=== PATIENT | female | born 1970 | race Hispanic/Latino ===

== ENCOUNTER 2023-05-17 20:06 | Emergency (ER) | payer SELFPAY ==
--- OUTSIDE RECORDS SUMMARY | 2023-05-17 20:10 | XMS REPORT | Continuity of Care Document ---
:1970 Author Organization [facility] t Address [address] [place] [address] Care Team Providers Name Role Phone Luis Alberto Baig Primary Care Physician Duarte Benitez MD Attending Clinician DUARTE BENITEZ Attending Clinician Unavailable Doctor Unassigned, [place] [facility] Attending Clinician Unavailable Xavi Meek Attending Clinician Payers Payer Name Policy Type Policy Number Effective Date Expiration Date S ource Problems Condition Condition Condition Status Onset Resolution Last Treating Co mments Source Name Details Category Date Date Treatment Clinician Date Mammogram Mammogram Disease Active 2016-07 Uni vers abnormal abnormal 07-17 ity of 00:00: [address] Irregular Irregular Disease Active Uni vers menstrual menstrual 04-03 ity of cycle cycle 00:00: [address] Well woman Well woman Disease Active U nivers exam exam 04-03 ity of 00:00: [address] EYE PAIN EYE PAIN Diagnosis Active 2017-02-06 Memoria Active 07-24 15:20:00 l 07/24/2016 00:00: John SHAFER 00 [facility] Screening Screening Disease Active 2014-07 Uni vers breast breast 07-18 ity of examinatio examinatio 00:00: Alex armenta n n 00 [facility] Dysfunctio Dysfunctio Disease Active 2015-0 U nivers nal nal 6-19 ity of uterine uterine 00:00: [place] bleeding bleeding 00 Medica l Branch History of Past Illness Condition Condition Condition Status Onset Resolution Last Treating Co mments Source Name Details Category Date Date Treatment Clinician Date Discharge Discharge Problem 2016-07-27 2016-07-27 Jevon Diagnosis: Diagnosis: 1-15 01:42:12 01:42:12 l Chalazion Chalazion 06:00: Herm walter of right of right 00 upper upper eyelid eyelid 07/24/201607/27/ 7 [facility] Allergies, Adverse Reactions, Alerts Allergy Allergy Status Severity Reaction(s) Onset Inactive Treating Comm ents Source Name Type Date Date Clinician metroNID Propensi Active AZOLE - ty to 3-23 Oral adverse 00:00: reaction 00 to drug Metronid Propensi Active azole ty to 3-13 adverse 00:00: reaction 00 to drug NO KNOWN Drug Active Univers ALLERGIE Class ity of S [facility] Social History Social Habit Start Date Stop Date Quantity Comments Source Exposure to 2022-10-17 2022-10-27 Not sure University SARS-CoV-2 00:00:00 08:34:00 [facility] (event) Branch Tobacco use and 2022-10-27 2022-10-27 Smokeless tobacco Un iversity of exposure 00:00:00 00:00:00 non-user [facility] Alcohol intake 2022-10-27 2022-10-27 Current University 00:00:00 00:00:00 non-drinker of [facility] alcohol (finding) Branch Sex Ass[birth year] At [birth year] Universit y of 00:00:00 00:00:00 [facility] Smoking Status Start Date Stop Date Source Social History [facility] Medications Ordered Filled Start Stop Current Ordering Indication Dosage Frequency Signature Comments Components Source Medication Medication Date Date Medication? Clinician (SIG) Name Name diclofenac Yes [id number] 75mg Take 1 Univers 75 mg EC 4-20 9100 tablet by ity of tablet 00:00: mouth 2 [place] (two) Medical times Branch daily with meals. diclofenac Yes [id number] 75mg Take 1 Univers 75 mg EC 4-20 9100 tablet by ity of tablet 00:00: mouth 2 [place] [id number] (two) Medical times Branch daily with meals. amoxicillin 2-0 No 1mg 875 3-30 mg-potassiu 00:00: m 00 clavulanate 125 mg tablet gabapentin 2-0 No 1mg 100 mg 3-30 capsule 00:00: 00 Dose 2022-0 No Unknown 3-30 00:00: 00 Dose 2022-0 No Unknown 3-30 00:00: 00 Dose 2022-0 No Unknown 3-30 00:00: 00 Dose 2-0 No Unknown 3-30 00:00: 00 Dose 2-0 No Unknown 3-30 00:00: 00 Dose 2-0 No Unknown 3-30 00:00: 00 Dose 2-0 No Unknown 3-30 00:00: 00 Dose 2-0 No Unknown 3-30 00:00: 00 Dose 2-0 No Unknown 3-30 00:00: 00 Dose 2-0 No Unknown 3-30 00:00: 00 Dose 2-0 No Unknown 3-30 00:00: 00 Dose 2-0 No Unknown 3-30 00:00: 00 Dose 2-0 No Unknown 3-30 00:00: 00 Dose 2-0 No Unknown 3-30 00:00: 00 Dose 2-0 No Unknown 3-30 00:00: 00 Dose 2-0 No Unknown 3-30 00:00: 00 Dose 2-0 No Unknown 3-30 00:00: 00 Dose 2-0 No Unknown 3-30 00:00: 00 Dose 2022-0 No Unknown 3-30 00:00: 00 Dose 2-0 No Unknown 3-30 00:00: 00 Dose 2-0 No Unknown 3-30 00:00: 00 Dose 2-0 No Unknown 3-30 00:00: 00 Dose 2-0 No Unknown 3-30 00:00: 00 Dose 2-0 No Unknown 3-30 00:00: 00 Dose 2-0 No Unknown 3-30 00:00: 00 Dose 2-0 No Unknown 3-30 00:00: 00 Dose 2022-0 No Unknown 3-30 00:00: 00 Dose 2022-0 No Unknown 3-30 00:00: 00 Dose 2022-0 No Unknown 3-30 00:00: 00 Dose 2022-0 No Unknown 3-30 00:00: 00 Dose 2022-0 No Unknown 3-30 00:00: 00 Dose 2022-0 No Unknown 3-30 00:00: 00 Dose 2022-0 No Unknown 3-30 00:00: 00 Dose 2022-0 No Unknown 3-30 00:00: 00 Dose 2022-0 No Unknown 3-28 00:00: 00 Dose 2022-0 No Unknown 3-28 00:00: 00 Dose 2022-0 No Unknown 3-27 00:00: 00 Dose 2022-0 No Unknown 3-27 00:00: 00 Dose 2022-0 No Unknown 3-24 00:00: 00 Dose 2022-0 No Unknown 3-24 00:00: 00 Dose 2022-0 No Unknown 3-24 00:00: 00 Dose 2022-0 No Unknown 3-24 00:00: 00 Dose 2022-0 No Unknown 3-23 00:00: 00 Dose 2022-0 No Unknown 3-23 00:00: 00 Dose 2022-0 No Unknown 3-23 00:00: 00 Dose 2022-0 No Unknown 3-23 00:00: 00 Dose 2022-0 No Unknown 3-23 00:00: 00 Dose 2022-0 No Unknown 3-23 00:00: 00 Dose 2022-0 No Unknown 3-23 00:00: 00 Dose 2022-0 No Unknown 3-23 00:00: 00 Dose 2022-0 No Unknown 3-23 00:00: 00 Dose 2022-0 No Unknown 3-23 00:00: 00 Dose 2022-0 No Unknown 3-23 00:00: 00 Dose 2022-0 No Unknown 3-23 00:00: 00 Dose 2022-0 No Unknown 3-23 00:00: 00 Dose 2022-0 No Unknown 3-23 00:00: 00 Dose 2022-0 No Unknown 3-23 00:00: 00 Dose 2022-0 No Unknown 3-23 00:00: 00 Dose 2022-0 No Unknown 3-23 00:00: 00 Dose 2022-0 No Unknown 3-23 00:00: 00 Dose 2022-0 No Unknown 3-23 00:00: 00 Dose 2022-0 No Unknown 3-23 00:00: 00 Dose 2022-0 No Unknown 3-23 00:00: 00 Dose 2022-0 No Unknown 3-23 00:00: 00 Dose 2022-0 No Unknown 3-23 00:00: 00 Dose 2022-0 No Unknown 3-23 00:00: 00 Dose 2022-0 No Unknown 3-23 00:00: 00 Dose 2022-0 No Unknown 3-23 00:00: 00 Dose 2022-0 No Unknown 3-23 00:00: 00 Dose 2022-0 No Unknown 3-23 00:00: 00 Dose 2022-0 No Unknown 3-23 00:00: 00 Dose 2022-0 No Unknown 3-23 00:00: 00 Dose 2022-0 No Unknown 3-23 00:00: 00 Dose 2022-0 No Unknown 3-23 00:00: 00 Dose 2022-0 No Unknown 3-23 00:00: 00 Dose 2022-0 No Unknown 3-23 00:00: 00 Dose 2022-0 No Unknown 3-23 00:00: 00 Dose 2022-0 No Unknown 3-23 00:00: 00 Dose 2022-0 No Unknown 3-23 00:00: 00 Dose 2022-0 No Unknown 3-23 00:00: 00 Dose 2022-0 No Unknown 3-23 00:00: 00 Dose 2022-0 No Unknown 3-23 00:00: 00 Dose 2022-0 No Unknown 3-23 00:00: 00 Dose 2022-0 No Unknown 3-23 00:00: 00 Dose 2022-0 No Unknown 3-23 00:00: 00 Dose 2022-0 No Unknown 3-23 00:00: 00 Dose 2022-0 No Unknown 3-23 00:00: 00 Dose 2022-0 No Unknown 3-23 00:00: 00 Dose 2022-0 No Unknown 3-23 00:00: 00 Dose 2022-0 No Unknown 3-23 00:00: 00 Dose 2022-0 No Unknown 3-23 00:00: 00 Dose 2022-0 No Unknown 3-23 00:00: 00 Dose 2022-0 No Unknown 3-23 00:00: 00 Dose 2022-0 No Unknown 3-23 00:00: 00 Dose 2022-0 No Unknown 3-23 00:00: 00 Dose 2022-0 No Unknown 3-23 00:00: 00 Dose 2022-0 No Unknown 3-23 00:00: 00 Dose 2022-0 No Unknown 3-23 00:00: 00 Dose 2022-0 No Unknown 3-23 00:00: 00 Dose 2022-0 No Unknown 3-23 00:00: 00 Dose 2022-0 No Unknown 3-23 00:00: 00 Dose 2022-0 No Unknown 3-23 00:00: 00 Dose 2022-0 No Unknown 3-23 00:00: 00 Dose 2022-0 No Unknown 3-23 00:00: 00 Dose 2022-0 No Unknown 3-23 00:00: 00 Dose 2022-0 No Unknown 3-23 00:00: 00 Dose 2022-0 No Unknown 3-23 00:00: 00 Dose 2022-0 No Unknown 3-23 00:00: 00 Dose 2022-0 No Unknown 3-23 00:00: 00 Dose 2022-0 No Unknown 3-23 00:00: 00 Dose 2022-0 No Unknown 3-23 00:00: 00 Dose 2022-0 No Unknown 3-23 00:00: 00 Dose 2022-0 No Unknown 3-23 00:00: 00 Dose 2022-0 No Unknown 3-23 00:00: 00 Dose 2022-0 No Unknown 3-23 00:00: 00 Dose 2022-0 No Unknown 3-23 00:00: 00 Dose 2022-0 No Unknown 3-23 00:00: 00 Dose 2022-0 No Unknown 3-23 00:00: 00 Dose 2022-0 No Unknown 3-23 00:00: 00 Dose 2022-0 No Unknown 3-23 00:00: 00 Dose 2022-0 No Unknown 3-23 00:00: 00 Dose 2022-0 No Unknown 3-23 00:00: 00 Dose 2022-0 No Unknown 3-23 00:00: 00 Dose 2022-0 No Unknown 3-23 00:00: 00 Dose 2022-0 No Unknown 3-23 00:00: 00 Dose 2022-0 No Unknown 3-23 00:00: 00 Dose 2022-0 No Unknown 3-23 00:00: 00 Dose 2022-0 No Unknown 3-23 00:00: 00 Dose 2022-0 No Unknown 3-23 00:00: 00 Dose 2022-0 No Unknown 3-23 00:00: 00 Dose 2022-0 No Unknown 3-23 00:00: 00 Dose 2022-0 No Unknown 3-23 00:00: 00 Dose 2022-0 No Unknown 3-23 00:00: 00 Dose 2022-0 No Unknown 3-23 00:00: 00 Dose 2022-0 No Unknown 3-23 00:00: 00 Dose 2022-0 No Unknown 3-23 00:00: 00 Dose 2022-0 No Unknown 3-23 00:00: 00 Dose 2022-0 No Unknown 3-23 00:00: 00 Dose 2022-0 No Unknown 3-23 00:00: 00 Dose 2022-0 No Unknown 3-23 00:00: 00 Dose 2022-0 No Unknown 3-23 00:00: 00 Dose 2022-0 No Unknown 3-23 00:00: 00 Dose 2022-0 No Unknown 3-23 00:00: 00 Dose 2022-0 No Unknown 3-23 00:00: 00 Dose 2022-0 No Unknown 3-23 00:00: 00 Dose 2022-0 No Unknown 3-23 00:00: 00 Dose 2022-0 No Unknown 3-23 00:00: 00 Dose 2022-0 No Unknown 3-23 00:00: 00 Dose 2022-0 No Unknown 3-23 00:00: 00 Dose 2022-0 No Unknown 3-23 00:00: 00 Dose 2022-0 No Unknown 3-23 00:00: 00 Dose 2022-0 No Unknown 3-23 00:00: 00 Dose 2022-0 No Unknown 3-23 00:00: 00 Dose 2022-0 No Unknown 3-23 00:00: 00 Dose 2022-0 No Unknown 3-23 00:00: 00 Dose 2022-0 No Unknown 3-23 00:00: 00 Dose 2022-0 No Unknown 3-23 00:00: 00 Dose 2022-0 No Unknown 3-23 00:00: 00 Dose 2022-0 No Unknown 3-23 00:00: 00 Dose 2022-0 No Unknown 3-23 00:00: 00 Dose 2022-0 No Unknown 3-23 00:00: 00 Dose 2022-0 No Unknown 3-23 00:00: 00 Dose 2022-0 No Unknown 3-23 00:00: 00 Dose 2022-0 No Unknown 3-23 00:00: 00 Dose 2022-0 No Unknown 3-23 00:00: 00 Dose 2022-0 No Unknown 3-23 00:00: 00 Dose 2022-0 No Unknown 3-23 00:00: 00 Dose 2022-0 No Unknown 3-23 00:00: 00 Dose 2022-0 No Unknown 3-23 00:00: 00 Dose 2022-0 No Unknown 3-23 00:00: 00 Dose 2022-0 No Unknown 3-23 00:00: 00 Dose 2022-0 No Unknown 3-23 00:00: 00 Dose 2022-0 No Unknown 1-11 00:00: 00 Dose 2020-0 No Unknown 4-14 00:00: 00 Dose 2020-0 No Unknown 4-14 00:00: 00 Dose 2020-0 No Unknown 4-12 00:00: 00 Dose 2020-0 No Unknown 4-12 00:00: 00 prednisone 2020-0 No 1mg 50 mg 1-08 tablet 00:00: 00 Bromfed DM 2020- No 75mg/5 2 mg-30 1-08 mL mg-10 mg/5 00:00: mL oral 00 syrup ciprofloxac 2019-0 No 1mg in 500 mg 6-12 tablet 00:00: 00 dicyclomine 2019-0 No 1mg 20 mg 6-12 tablet 00:00: 00 terbinafine Yes 250mg Take 250 U nivers HCl 250 mg 9-25 mg by ity of tablet 10:50: mouth [place] 02 daily. Medical Branch terbinafine Yes 250mg Take 250 U nivers HCl 250 mg 9-25 mg by ity of tablet 10:50: mouth [place] 02 daily. Medical Branch terbinafine Yes 250mg Take 250 U nivers HCl 250 mg 9-25 mg by ity of tablet 10:50: mouth [place] 02 daily. Medical Branch Tobramycin Yes 1 appl, Cezar jesi 0.003 MG/MG 1-16 RIGHT EYE, l Ophthalmic 01:48: TID, X 7 Her maldonado Ointment 00 day, # 3 gm, 0 Refill(s) Tobramycin Yes 1 appl, Cezar jesi 0.003 MG/MG 1-16 RIGHT EYE, l Ophthalmic 01:48: TID, X 7 Her maldonado Ointment 00 day, # 3 gm, 0 Refill(s) Tobramycin 2016- Yes 1 appl, Cezar jesi 0.003 MG/MG 1-16 RIGHT EYE, l Ophthalmic 01:48: TID, X 7 Her maldonado Ointment 00 day, # 3 gm, 0 Refill(s) Tobramycin 2016- Yes 1 appl, Cezar jesi 0.003 MG/MG 1-16 RIGHT EYE, l Ophthalmic 01:48: TID, X 7 Her maldonado Ointment 00 day, # 3 gm, 0 Refill(s) Tobramycin Yes 1 appl, Cezar jesi 0.003 MG/MG 1-16 RIGHT EYE, l Ophthalmic 01:48: TID, X 7 Her maldonado Ointment 00 day, # 3 gm, 0 Refill(s) Tobramycin 2016- Yes 1 appl, Cezar jesi 0.003 MG/MG -16 RIGHT EYE, l Ophthalmic 01:48: TID, X 7 Her maldonado Ointment 00 day, # 3 gm, 0 Refill(s) Tobramycin Yes 1 appl, Cezar jesi 0.003 MG/MG 1-16 RIGHT EYE, l Ophthalmic 01:48: TID, X 7 Her maldonado Ointment 00 day, # 3 gm, 0 Refill(s) Tobramycin 2016- Yes 1 appl, Cezar jesi 0.003 MG/MG 1-16 RIGHT EYE, l Ophthalmic 01:48: TID, X 7 Her maldonado Ointment 00 day, # 3 gm, 0 Refill(s) Tobramycin Yes 1 appl, Cezar jesi 0.003 MG/MG -16 RIGHT EYE, l Ophthalmic 01:48: TID, X 7 Her maldonado Ointment 00 day, # 3 gm, 0 Refill(s) Vital Signs Vital Name Observation Time Observation Value Comments Source Systolic blood 2022-10-27 13:45:00 107 mm[Hg] Charly russelly [facility] Diastolic blood 2022-10-27 13:45:00 74 mm[Hg[facility] Heart rate 2022-10-27 13:45:00 66 /min [facility] Body height 2022-10-27 13:45:00 165.1 cm [facility] Body weight 2022-10-27 13:45:00 76.703 kg [facility] BMI 2022-10-27 13:45:00 28.14 kg/m2 [facility] BP Systolic 2022-03-30 11:51:00 101 mm[Hg] BP Diastolic 2022-03-30 11:51:00 68 mm[Hg] Weight Measured 2022-03-30 11:51:00 176.00 pounds Height Measured 2022-03-30 11:51:00 64.00 inches Body Temperature 2022-03-30 11:51:00 97.40 degrees Heart Rate 2022-03-30 11:51:00 66.00 /min Respiratory Rate 2022-03-30 11:51:00 BP Systolic 2021-10-06 16:39:00 96 mm[Hg] BP Diastolic 2021-10-06 16:39:00 61 mm[Hg] Weight Measured 2021-10-06 16:39:00 165.40 pounds Height Measured 2021-10-06 16:39:00 64.00 inches Body Temperature 2021-10-06 16:39:00 97.70 degrees Heart Rate 2021-10-06 16:39:00 69.00 /min Respiratory Rate 2021-10-06 16:39:00 21.00 /min BP Systolic 2021-09-29 10:03:00 93 mm[Hg] BP Diastolic 2021-09-29 10:03:00 57 mm[Hg] Weight Measured 2021-09-29 10:03:00 163.40 pounds Height Measured 2021-09-29 10:03:00 64.00 inches Body Temperature 2021-09-29 10:03:00 98.30 degrees Heart Rate 2021-09-29 10:03:00 59.00 /min Respiratory Rate 2021-09-29 10:03:00 BP Systolic 2021-07-20 15:00:00 110 mm[Hg] BP Diastolic 2021-07-20 15:00:00 71 mm[Hg] Weight Measured 2021-07-20 15:00:00 161.40 pounds Height Measured 2021-07-20 15:00:00 64.00 inches Body Temperature 2021-07-20 15:00:00 98.00 degrees Heart Rate 2021-07-20 15:00:00 68.00 /min Respiratory Rate 2021-07-20 15:00:00 16.00 /min BP Systolic 2020-09-09 08:51:00 107 mm[Hg] BP Diastolic 2020-09-09 08:51:00 68 mm[Hg] Weight Measured 2020-09-09 08:51:00 176.60 pounds Height Measured 2020-09-09 08:51:00 64.00 inches Body Temperature 2020-09-09 08:51:00 98.50 degrees Heart Rate 2020-09-09 08:51:00 67.00 /min Respiratory Rate 2020-09-09 08:51:00 16.00 /min BP Systolic 2020-09-04 11:02:00 107 mm[Hg] BP Diastolic 2020-09-04 11:02:00 67 mm[Hg] Weight Measured 2020-09-04 11:02:00 175.80 pounds Height Measured 2020-09-04 11:02:00 64.00 inches Body Temperature 2020-09-04 11:02:00 Heart Rate 2020-09-04 11:02:00 76.00 /min Respiratory Rate 2020-09-04 11:02:00 17.00 /min BP Systolic 2019-08-13 15:51:00 113 mm[Hg] BP Diastolic 2019-08-13 15:51:00 72 mm[Hg] Weight Measured 2019-08-13 15:51:00 163.00 pounds Height Measured 2019-08-13 15:51:00 64.00 inches Body Temperature 2019-08-13 15:51:00 98.50 degrees Heart Rate 2019-08-13 15:51:00 69.00 /min Respiratory Rate 2019-08-13 15:51:00 BP Systolic 2018-12-17 15:20:00 95 mm[Hg] BP Diastolic 2018-12-17 15:20:00 63 mm[Hg] Weight Measured 2018-12-17 15:20:00 194.20 pounds Height Measured 2018-12-17 15:20:00 64.00 inches Body Temperature 2018-12-17 15:20:00 98.10 degrees Heart Rate 2018-12-17 15:20:00 68.00 /min Respiratory Rate 2018-12-17 15:20:00 16.00 /min BP Systolic 2018-09-19 10:44:00 105 mm[Hg] BP Diastolic 2018-09-19 10:44:00 72 mm[Hg] Weight Measured 2018-09-19 10:44:00 142.00 pounds Height Measured 2018-09-19 10:44:00 62.80 inches Body Temperature 2018-09-19 10:44:00 97.90 degrees Heart Rate 2018-09-19 10:44:00 72.00 /min Respiratory Rate 2018-09-19 10:44:00 17.00 /min Systolic (mm Hg) 2016-07-25 01:53:00 Cezar rial Cedric Diastolic (mm Hg) 2016-07-25 01:53:00 Mem orial Cedric Respitory Rate 2016-07-25 01:53:00 Memori al [place] Heart Rate 2016-07-25 01:53:00 [facility] BMI Calculated 2016-07-25 01:11:00 Memori al [place] Systolic (mm Hg) 2016-07-25 01:11:00 Cezar rial Cedric Diastolic (mm Hg) 2016-07-25 01:11:00 Mem orial [facility] Heart Rate 2016-07-25 01:11:00 [facility] [place] Respitory Rate 2016-07-25 01:11:00 Memori al Cedric Temperature Oral (F) 2016-07-25 01:11:00 98.1 F [facility] Weight 2016-07-25 01:11:00 [facility] [place] Height 2016-07-25 01:11:00 152.4 cm [facility] [place] Procedures Procedure Date / Time Performed Performing Clinician [facility] pooja [facility] PATIENT 2022-10-27 13:35:34 Doctor Unassigned, No [facility] FINANCIAL POLICY Name Medical Branch Plan of Care Planned Activity Planned Date Details Comments Source Goal Plan of Care Note [code = 64119-9] Goal Plan of Care Note [code = 99909-6] Goal Plan of Care Note [code = 51696-4] Goal Plan of Care Note [code = 09096-0] Goal Plan of Care Note [code = 05886-4] Goal Plan of Care Note [code = 67879-7] Goal Plan of Care Note [code = 44831-3] Goal Plan of Care Note [code = 70294-0] Goal Plan of Care Note [code = 59166-3] Goal Plan of Care Note [code = 41013-8] Goal Plan of Care Note [code = 13399-7] Goal Plan of Care Note [code = 21863-3] Goal Plan of Care Note [code = 32770-5] Goal Plan of Care Note [code = 71091-6] Goal Plan of Care Note [code = 26018-0] Goal Plan of Care Note [code = 28024-6] Goal Plan of Care Note [code = 10325-0] Goal Plan of Care Note [code = 47996-6] Goal Plan of Care Note [code = 97840-8] Goal Plan of Care Note [code = 21079-3] Goal Plan of Care Note [code = 76470-5] Goal Plan of Care Note [code = 60953-5] Goal Plan of Care Note [code = 38271-4] Goal Plan of Care Note [code = 96156-1] Goal Plan of Care Note [code = 76819-1] Goal Plan of Care Note [code = 72436-7] Goal Plan of Care Note [code = 06263-2] Goal Plan of Care Note [code = 11458-8] Goal Plan of Care Note [code = 59228-7] Goal Plan of Care Note [code = 43106-5] Goal Plan of Care Note [code = 38228-7] Encounters Start End Encounter Admission Attending Care Care Encounter Source Date/Time Date/Time Type Type Clinicians Facility Department ID 2023-02-28 2023-02-28 Outpatient SFA SFA [id number] Vivek 08:28:48 08:28:48 0822 [facility] 2022-12-06 2022-12-06 Outpatient SFA SFA [id number] Vivek 10:30:45 10:30:45 0530 [facility] 2022-12-03 2022-12-03 Outpatient SFA SFA [id number] Vivek 11:55:38 11:55:38 0527 [facility] 2022-12-01 2022-12-01 Outpatient SFA SFA [id number] Vivek 16:23:07 16:23:07 0525 [facility] 2022-10-27 2022-10-27 [facility] [id number] Univers 09:00:00 09:15:00 Visit Duarte [facility] [id number] it y of [place] [id number] Son as ROSIE?BLEA [id number] [address] MEDICAL OFFICE [facility] 2022-10-27 2022-10-27 [facility] [id number] Univers 09:00:00 09:00:00 DUARTE simon [facility] [place] 2022-10-27 2022-10-27 Orders Doctor MIAN [id number] [facility] Univers 00:00:00 00:00:00 Only Unassigned, RICHARDSON [id number] ity of [place] [facility] [id number] Son as [id number] [address] 2022-10-14 2022-10-14 Out[facility] [id number] Univers 10:45:00 10:45:00 DUARTE simon [facility] [place] 2022-10-14 2022-10-14 Outpatient Galen [facility] [id number] Univers 09:45:00 09:45:00 DUARTE [facility] 2022-09-27 2022-09-27 Outpatient SFA SFA [id number] Vivek 16:13:10 16:13:10 0321 [place] 2022-09-14 2022-09-14 Outpatient SFA SFA [id number] Vivek 08:52:21 08:52:21 0308 [place] 2022-06-23 2022-06-23 Outpatient SFA SFA [id number] Vivek 09:19:48 09:19:48 1215 [facility] 2022-03-30 2022-03-30 Outpatient [id number] 00:00:00 00:00:00 Visit [id number] 2016-07-25 2016-07-25 Emergency [facility] [id number] [facility] 00:59:00 02:06:00 r Cedric 00 l [facility] 2016-07-25 2016-07-25 Emergency [facility] [id number] [facility] 00:59:00 02:06:00 r Cedric 00 l [facility] 2016-07-24 2016-07-24 Outpatient Fantasma, [facility] [id number] 18:59:00 20:06:00 Xavi 00 Alo Results Test Description Test Time Test Comments Results Result Comments Source CULTURE, URINE 2023-03-04 SPECIMEN NUMBER: 14:55:31 [id number] CULTURE, URINE SPECIMEN NUMBER: [id number] SOURCE: URINE REPORT STATUS: FINAL FINAL REPORT: 03/04/2023 50-100,000 CFU/ML MIXED MICROBIAL POPULATION PRESENT, NO PREDOMINATING ORGANISMS;PROBABLE CONTAMINANTS. PRELIMINARY URINE CULTURE: 03/02/2023 INSUFFICIENT GROWTH - FURTHER REPORTS TO FOLLOW UNLESS OTHERWISE INDICATED, ALL TESTING PERFORMED AT [facility] [employer] [address] [place] [id number] RN NEUROLOGY: KEYSHA DUMONT M.D. CLIA NUMBER [id number] [place]. [id number] CULTURE, URINE 2022-12-06 SPECIMEN NUMBER: 12:11:40 [id number] CULTURE, URINE SPECIMEN NUMBER: [id number] SPECIMEN COMMENT: URINE SOURCE: URINE REPORT STATUS: FINAL ISOLATE NUMBER 1: ORGANISM: 12/05/2022 >100,000 CFU/ML GRAM NEGATIVE BACILLI IDENTIFICATION: 12/06/2022 ESCHERICHIA COLI E. COLI AMOX ICILLIN/CA SENSITIVE <=8/4AMPICILLIN RESISTANT >16CEFAZOLIN SENSITIVE <=2CEFTRIAXONE SENSITIVE <=1CIPROFLOXACIN RESISTANT >2LEVOFLOXACIN RESISTANT >4NITROFURANTOIN SENSITIVE <=32PIP/TAZOBAC SENSITIVE <=16TETRACYCLINE RESISTANT >8TOBRAMYCIN SENSITIVE <=4TRIMETH/SULFA RESISTANT >2/38 NOTE: NUMBERS DISPLAYED REPRESENT MINIMUM INHIBITORY CONCENTRATION (RAUL) WHICH IS EXPRESSED IN MCG/ML. UNLESS OTHERWISE INDICATED, ALL TESTING PERFORMED AT [facility] [employer] [address] [place] [id number] RN NEUROLOGY: KEYSHA DUMONT M.D. CLIA NUMBER [id number] [place]. [id number] CULTURE, URINE 2022-04-02 SPECIMEN NUMBER: 15:24:34 [id number] CULTURE, URINE SPECIMEN NUMBER: [id number] SOURCE: URINE REPORT STATUS: FINAL ISOLATE NUMBER 1: ORGANISM: 04/01/2022 >100,000 CFU/ML GRAM NEGATIVE BACILLI IDENTIFICATION: 04/02/2022 ESCHERICHIA COLI E. COLI AMOX ICILLIN/CA SENSITIVE <=8/4AMPICILLIN SENSITIVE <=8CEFAZOLIN SENSITIVE <=2CEFTRIAXONE SENSITIVE <=1CIPROFLOXACIN SENSITIVE <=1LEVOFLOXACIN SENSITIVE <=2NITROFURANTOIN SENSITIVE <=32PIP/TAZOBAC SENSITIVE <=16TETRACYCLINE RESISTANT >8TOBRAMYCIN SENSITIVE <=4TRIMETH/SULFA SENSITIVE <=2/38 NOTE: NUMBERS DISPLAYED REPRESENT MINIMUM INHIBITORY CONCENTRATION (RAUL) WHICH IS EXPRESSED IN MCG/ML. UNLESS OTHERWISE INDICATED, ALL TESTING PERFORMED [facility], [facility]. [address] [place] [address] RN NEUROLOGY: HECTOR FAGAN M.D. CLIA NUMBER [id number] [facility] [place]. [id number] CULTURE, URINE 2021-10-02 SPECIMEN NUMBER: 10:37:45 [id number] CULTURE, URINE SPECIMEN NUMBER: [id number] SPECIMEN COMMENT: URINE SOURCE: URINE REPORT STATUS: FINAL ISOLATE NUMBER 1: ORGANISM: 10/01/2021 50-100,000 CFU/ML GRAM NEGATIVE BACILLI IDENTIFICATION: 10/02/2021 ESCHERICHIA COLI E. COLI AMOX ICILLIN/CA SENSITIVE <=8/4AMPICILLIN SENSITIVE <=8CEFAZOLIN SENSITIVE <=2CEFTRIAXONE SENSITIVE <=1CIPROFLOXACIN SENSITIVE <=1LEVOFLOXACIN SENSITIVE <=2NITROFURANTOIN SENSITIVE <=32PIP/TAZOBAC SENSITIVE <=16TETRACYCLINE SENSITIVE <=4TOBRAMYCIN SENSITIVE <=4TRIMETH/SULFA SENSITIVE <=2/38 NOTE: NUMBERS DISPLAYED REPRESENT MINIMUM INHIBITORY CONCENTRATION (RAUL) WHICH IS EXPRESSED IN MCG/ML. CULTURE, URINE [ADDED] 2021-10-02 00:00:00 Test Item Value Reference Range Interpretation Comme nts CULTURE, URINE (test code = 84707) SPECIMEN NUMBER: [id number] CULTURE, URINE [ADDED]2021-10-02 00:00:00 Test Item Value Reference Range Interpretation Comments CULTURE, URINE (test SPECIMEN NUMBER: code = 65448) [id number] SANDRA (ANTI-NUCLEAR AB) WITH REFLEX [id number] 10:06:20 Test Item Value Reference Range Interpretation Comments ANTI-NUCLEAR NEGATIVE NEGATIVE Methodology is Indirect ANTIBODIES (test Immunofluor escent Assay code = 3506) (IFA) with a TextHub system using He p2000 cells (Hep2 cells tra nsfected with SS-A/Ro). UNLESS OTHERWISE INDIC ATED, ALL TESTING PERFORM ED ATCLINICAL PATH OLOGY LABORATORIES, [facility]. [address] [place] [address] LABORATORY DIRE CTOR: Macario HUTCHINSON. CLIA NUMBER [id number] CAP ACCREDITATION N O. [id number] VITAMIN [id number] 06:27:33 Test Item Value Reference Range Interpretation Comments VITAMIN B-12 (test code = 2840) 578 PG/ML 200-950 TSH, THIRD [id number] 06:27:33 Test Item Value Reference Range Interpretation Comments TSH, THIRD GENERATION (test code 4.980 UIU/ML 0.400-4.100 H = 2821) COMPREHENSIVE METABOLIC [id number] 06:18:22 Test Item Value Reference Range Interpretation Comments GLUCOSE (test code = 90 MG/DL 70-99 2216) BUN (test code = 16 MG/DL 6-20 2207) CREATININE (test 0.69 MG/DL 0.60-1.30 code = 2214) eGFR (2020 CKD-EPI) 107 >60 (test code = 96410) ML/MIN/1.73 CALC BUN/CREAT (test 23 RATIO 6-28 code = 2235) SODIUM (test code = 140 MEQ/L 875-266 1119) POTASSIUM (test code 4.6 MEQ/L 3.5-5.4 = 8) CHLORIDE (test code 104 MEQ/L 95-107 = 2215) CARBON DIOXIDE (test 26 MEQ/L 19-31 code = 2206) CALCIUM (test code = 9.6 MG/DL 8.5-10.5 2208) PROTEIN, TOTAL (test 7.6 G/DL 6.1-8.3 code = 2229) ALBUMIN (test code = 4.7 G/DL 3.5-5.2 2200) CALC GLOBULIN (test 2.9 G/DL 1.9-3.7 code = 2240) CALC A/G RATIO (test 1.6 RATIO 1.0-2.6 code = 2234) BILIRUBIN, TOTAL 1.2 MG/DL See_Comment [Automated message] (test code = 2207) The syste m which generated this result transmit gagandeep reference range : <=1.2. The refe rence range was not u sed to interpret th is result as normal/abnormal . ALKALINE PHOSPHATASE 72 U/L 40-123 (test code = 2204) AST (test code = 18 U/L 9-40 2217) ALT (test code = 12 U/L 5-40 2218) HEMOGLOBIN [id number] 04:51:04 Test Item Value Reference Range Interpretation Comments HEMOGLOBIN A1c (test code = 10292) 5.5 % 4.2-5.6 COMPREHENSIVE METABOLIC [id number] 00:00:00 Test Item Value Reference Range Interpretation Comments GLUCOSE (test code = 2217) 90 MG/DL BUN (test code = 2208) 16 MG/DL CREATININE (test code = 2214) 0.69 MG/DL eGFR (2020 CKD-EPI) (test 107 ML/MIN/1.73 code = 32835) CALC BUN/CREAT (test code = 23 RATIO 2235) SODIUM (test code = 2231) 140 MEQ/L POTASSIUM (test code = 2228) 4.6 MEQ/L CHLORIDE (test code = 2215) 104 MEQ/L CARBON DIOXIDE (test code = 26 MEQ/L 2205) CALCIUM (test code = 2209) 9.6 MG/DL PROTEIN, TOTAL (test code = 7.6 G/DL 2228) ALBUMIN (test code = 2201) 4.7 G/DL CALC GLOBULIN (test code = 2.9 G/DL 2239) CALC A/G RATIO (test code = 1.6 RATIO 223) BILIRUBIN, TOTAL (test code = 1.2 MG/DL 2206) ALKALINE PHOSPHATASE (test 72 U/L code = 2204) AST (test code = 2218) 18 U/L ALT (test code = 2219) 12 U/L COMPREHENSIVE METABOLIC [id number] 00:00:00 Test Item Value Reference Range Interpretation Comments GLUCOSE (test code = 2217) 90 MG/DL BUN (test code = 2208) 16 MG/DL CREATININE (test code = 2214) 0.69 MG/DL eGFR (2020 CKD-EPI) (test 107 ML/MIN/1.73 code = 05597) CALC BUN/CREAT (test code = 23 RATIO 2235) SODIUM (test code = 2231) 140 MEQ/L POTASSIUM (test code = 2228) 4.6 MEQ/L CHLORIDE (test code = 2215) 104 MEQ/L CARBON DIOXIDE (test code = 26 MEQ/L 2205) CALCIUM (test code = 2209) 9.6 MG/DL PROTEIN, TOTAL (test code = 7.6 G/DL 2228) ALBUMIN (test code = 220) 4.7 G/DL CALC GLOBULIN (test code = 2.9 G/DL 2239) CALC A/G RATIO (test code = 1.6 RATIO 2233) BILIRUBIN, TOTAL (test code = 1.2 MG/DL 2206) ALKALINE PHOSPHATASE (test 72 U/L code = 2204) AST (test code = 2218) 18 U/L ALT (test code = 2219) 12 U/L HEMOGLOBIN [id number] 00:00:00 Test Item Value Reference Range Interpretation Comments HEMOGLOBIN A1c (test code = 75848) 5.5 % HEMOGLOBIN [id number] 00:00:00 Test Item Value Reference Range Interpretation Comments HEMOGLOBIN A1c (test code = 38303) 5.5 % HEMOGLOBIN [id number] 00:00:00 Test Item Value Reference Range Interpretation Comments HEMOGLOBIN A1c (test code = 70209) 5.5 % VITAMIN [id number] 00:00:00 Test Item Value Reference Range Interpretation Comments VITAMIN B-12 (test code = 2840) 578 PG/ML VITAMIN [id number] 00:00:00 Test Item Value Reference Range Interpretation Comments VITAMIN B-12 (test code = 2840) 578 PG/ML VITAMIN [id number] 00:00:00 Test Item Value Reference Range Interpretation Comments VITAMIN B-12 (test code = 2840) 578 PG/ML [id number] 00:00:00 Test Item Value Reference Range Interpretation Comments TSH, THIRD GENERATION (test code 4.980 UIU/ML = 2821) [id number] 00:00:00 Test Item Value Reference Range Interpretation Comments TSH, THIRD GENERATION (test code 4.980 UIU/ML = 2821) [id number] 00:00:00 Test Item Value Reference Range Interpretation Comments TSH, THIRD GENERATION (test code 4.980 UIU/ML = 2821) SANDRA (ANTI-NUCLEAR AB) WITH REFLEX [id number] 00:00:00 Test Item Value Reference Range Interpretation Comments ANTI-NUCLEAR ANTIBODIES (test code = NEGATIVE 3506) SANDRA (ANTI-NUCLEAR AB) WITH REFLEX [id number] 00:00:00 Test Item Value Reference Range Interpretation Comments ANTI-NUCLEAR ANTIBODIES (test code = NEGATIVE 3506) SCR MAMM BILATERAL AKOSUA CAD [id number] 11:14:45 Name: Lyric : 1970 Sex: F - SCR MAMM BILATERAL AKOSUA CAD DIGITALBILATERAL DIGITAL SCREENING MAMMOGRAM 3D/2D WITH CAD: 11/06/2020LINICAL: Asymptomatic. Digital breast tomosynthesis was performed in addition to routine CC and MLO views. Current mammographic images were evaluated by TagMii ImageRebls CAD (computer-aided detection) software. Comparison is made to exams dated 03/01/2019 mammogram - [facility], 05/18/2015 mammogram, and 05/16/2017 mammogram - [facility] [place]. Stop Prgm. There are scattered fibroglandular tissues in both breasts. No suspicious mass, architectural distortion, malignant type calcification, or lymph node abnormality detected. Breast architecture is stable compared to prior exams.IMPRESSION: NEGATIVEThere is no mammographic evidence of malignancy. Resume annual screening mammography in one year. Tawanna Lyles M.D. dm/penrad:11/11/2020 11:14:45 Printing Machine Mechanic: Susan Garcia MM, [facility] Mammographyletter sent: BIRADS 1-2 Normal Mammogram BI-RADS: 1 NegativeSCR MAMM BILATERAL AKOSUA CAD DIGITAL 2020-11-11 11:14:45 Name: Lyric : 1970 Sex: F - SCR MAMM BILATERAL AKOSUA CAD DIGITALBILATERAL DIGITAL SCREENING MAMMOGRAM 3D/2D WITH CAD: 11/06/2020LINICAL: Asymptomatic. Digital breast tomosynthesis was performed in addition to routine CC and MLO views. Current mammographic images were evaluated by TagMii ImageRebls CAD (computer-aided detection) software. Comparison is made to exams dated 03/01/2019 mammogram - [facility], 05/18/2015 mammogram, and 05/16/2017 mammogram - [facility] Ca. Stop Prgm. There are scattered fibroglandular tissues in both breasts. No suspicious mass, architectural distortion, malignant type calcification, or lymph node abnormality detected. Breast architecture is stable compared to prior exams.IMPRESSION: NEGATIVEThere is no mammographic evidence of malignancy. Resume annual screening mammography in one year. Tawanna Lyles M.D. dm/penrad:11/11/2020 11:14:45 Printing Machine Mechanic: Susan Garcia MM, [facility] Mammographyletter sent: BIRADS 1-2 Normal Mammogram BI-RADS: 1 NegativeH. PYLORI (BREATH)2020-10-28 00:00:00 Test Item Value Reference Range Interpretation Comments H. PYLORI (BREATH) (test code = NEGATIVE 57355) H. PYLORI (BREATH)2020-10-28 00:00:00 Test Item Value Reference Range Interpretation Comments H. PYLORI (BREATH) (test code = NEGATIVE 88508) PAP TEST, THINPREP, [id number] 00:00:00 Test Item Value Reference Range Interpretation Comments SOURCE: (test code = 8001) Cervical SLIDES: (test code = 8011) 1 LMP: (test code = 8021) 2017 SPECIMEN ADEQUACY: (test (NOTE) code = 79936) INTERPRETATION: (test code NILM/NO EPITH. = 55948) ABNORMALITY;SEE BELOW GUNNER'S MATE G: (test Dilan code = 8101) ADILIA Ramirez(ASCP) PATHOLOGIST INTERPRETATION Ian Waldrop M.D. BY: (test code = 8122) LOCATION: (test code = (NOTE) 10204) CPT: (test code = 8140) (NOTE) PAP TEST, THINPREP, [id number] 00:00:00 Test Item Value Reference Range Interpretation Comments SOURCE: (test code = 8001) Cervical SLIDES: (test code = 8011) 1 LMP: (test code = 8021) 2017 SPECIMEN ADEQUACY: (test (NOTE) code = 53407) INTERPRETATION: (test code NILM/NO EPITH. = 22941) ABNORMALITY;SEE BELOW GUNNER'S MATE G: (test Dilan code = 8101) ADILIA Ramirez(ASCP) PATHOLOGIST INTERPRETATION Ian Waldrop M.D. BY: (test code = 8122) LOCATION: (test code = (NOTE) 67815) CPT: (test code = 8140) (NOTE) HPV HIGH RISK WITH GENOTYPE, [id number] 00:00:00 Test Item Value Reference Range Interpretation Comments HPV HIGH RISK INTERP (test code = NEGATIVE 67251) HPV 16 (test code = 75533) NEGATIVE HPV 18 (test code = 31931) NEGATIVE HPV, HR, OTHER GENOTYPES (test code NEGATIVE = 34515) HPV HIGH RISK WITH GENOTYPE, [id number] 00:00:00 Test Item Value Reference Range Interpretation Comments HPV HIGH RISK INTERP (test code = NEGATIVE 48269) HPV 16 (test code = 92921) NEGATIVE HPV 18 (test code = 77351) NEGATIVE HPV, HR, OTHER GENOTYPES (test code NEGATIVE = 39553) SARS-CoV-2 (COVID-19) by RT-PCR (HIGH RISK)2020-08-04 00:00:00 Test Item Value Reference Range Interpretation Comments SARS-CoV-2 INTERPRETATION (test NEGATIVE code = 96629) SOURCE (test code = 52744) NOT SPECIFIED SARS-CoV-2 (COVID-19) by RT-PCR (HIGH RISK)2020-08-04 00:00:00 Test Item Value Reference Range Interpretation Comments SARS-CoV-2 INTERPRETATION (test NEGATIVE code = 31620) SOURCE (test code = 32569) NOT SPECIFIED SARS-COV-2 (COVID19), NAAT [ADDED]2020-07-17 00:00:00 Test Item Value Reference Range Interpretation Comments SARS-CoV-2 INTERPRETATION (test POSITIVE code = 76966) SOURCE (test code = 27241) NOT SPECIFIED SARS-COV-2 (COVID19), NAAT [ADDED]2020-07-17 00:00:00 Test Item Value Reference Range Interpretation Comments SARS-CoV-2 INTERPRETATION (test POSITIVE code = 94518) SOURCE (test code = 61458) NOT SPECIFIED SARS-CoV-2 (COVID-19) by RT-PCR (HIGH RISK)2019-12-23 00:00:00 Test Item Value Reference Range Interpretation Comments SARS-CoV-2 INTERPRETATION (test NEGATIVE code = 36949) SOURCE (test code = 41266) NOT SPECIFIED SARS-CoV-2 (COVID-19) by RT-PCR (HIGH RISK)2019-12-23 00:00:00 Test Item Value Reference Range Interpretation Comments SARS-CoV-2 INTERPRETATION (test NEGATIVE code = 92363) SOURCE (test code = 32240) NOT SPECIFIED PAP TEST, THINPREP, [id number] 00:00:00 Test Item Value Reference Range Interpretation Comments SOURCE: (test code = 8001) Cervical/Endocervi fabien SLIDES: (test code = 8011) 1 LMP: (test code = 8021) 03/10/2019 SPECIMEN ADEQUACY: (test (NOTE) code = 34626) INTERPRETATION: (test code NILM/NO EPITH. = 88912) ABNORMALITY;SEE BELOW GUNNER'S MATE G: (test Xavi code = 8101) ADILIA Hamilton(ASCP) PATHOLOGIST INTERPRETATION Ian Waldrop M.D. BY: (test code = 8122) LOCATION: (test code = (NOTE) 68651) CPT: (test code = 8140) (NOTE) PAP TEST, THINPREP, [id number] 00:00:00 Test Item Value Reference Range Interpretation Comments SOURCE: (test code = 8001) Cervical/Endocervi fabien SLIDES: (test code = 8011) 1 LMP: (test code = 8021) 03/10/2019 SPECIMEN ADEQUACY: (test (NOTE) code = 54053) INTERPRETATION: (test code NILM/NO EPITH. = 50662) ABNORMALITY;SEE BELOW GUNNER'S MATE G: (test Xavi code = 8101) ADILIA Hamilton(ASCP) PATHOLOGIST INTERPRETATION Ian Waldrop M.D. BY: (test code = 8122) LOCATION: (test code = (NOTE) 69780) CPT: (test code = 8140) (NOTE) HERPES SIMPLEX CULTURE AND [id number] 00:00:00 Test Item Value Reference Range Interpretation Comments SPECIMEN SOURCE (test code VAGINA = 90937) HERPES CULTURE (test code NEGATIVE = 3533) HERPES SIMPLEX TYPE I TEST NOT PERFORMED (test code = 86385) HERPES SIMPLEX TYPE II TEST NOT PERFORMED (test code = 35498) HERPES SIMPLEX CULTURE AND [id number] 00:00:00 Test Item Value Reference Range Interpretation Comments SPECIMEN SOURCE (test code VAGINA = 78678) HERPES CULTURE (test code NEGATIVE = 3533) HERPES SIMPLEX TYPE I TEST NOT PERFORMED (test code = 51004) HERPES SIMPLEX TYPE II TEST NOT PERFORMED (test code = 90268) HIV AB/AG COMBO RFLX [id number] 00:00:00 Test Item Value Reference Range Interpretation Comments HIV 1/2 4TH GEN, RFLX CONF (test NON-REACTIVE code = 3514) HIV AB/AG COMBO RFLX [id number] 00:00:00 Test Item Value Reference Range Interpretation Comments HIV 1/2 4TH GEN, RFLX CONF (test NON-REACTIVE code = 3514) GC AND CHLAMYDIA AMPLIFIED, [id number] 00:00:00 Test Item Value Reference Range Interpretation Comments GONORRHEA, TMA (test code = 67189) NEGATIVE CHLAMYDIA, TMA (test code = 24218) NEGATIVE GC AND CHLAMYDIA AMPLIFIED, [id number] 00:00:00 Test Item Value Reference Range Interpretation Comments GONORRHEA, TMA (test code = 23292) NEGATIVE CHLAMYDIA, TMA (test code = 33059) NEGATIVE [id number] 00:00:00 Test Item Value Reference Range Interpretation Comments RPR RESULT (test code = NON-REACTIVE 3501) RPR TITER (test code = 3500) NOT INDIC. TITER [id number] 00:00:00 Test Item Value Reference Range Interpretation Comments RPR RESULT (test code = NON-REACTIVE 3501) RPR TITER (test code = 3500) NOT INDIC. TITER [id number] 00:00:00 Test Item Value Reference Range Interpretation Comments RPR RESULT (test code = NON-REACTIVE 3501) RPR TITER (test code = 3500) NOT INDIC. TITER HEPATITIS PROFILE (A,B,C)2019-08-14 00:00:00 Test Item Value Reference Range Interpretation Comments HEPATITIS A TOTAL AB (test code REACTIVE = 2725) HEPATITIS B SURF AG (test code = NON-REACTIVE 2739) HEP B CORE TOTAL AB (test code = NON-REACTIVE 2729) HEPATITIS B SURFACE AB (test NON-REACTIVE code = 2737) HEPATITIS C ANTIBODY (test code NON-REACTIVE = 4675) INTERPRETATION HEPATITIS A: (NOTE) (test code = 2552) INTERPRETATION HEPATITIS B: (NOTE) (test code = 77873) INTERPRETATION HEPATITIS C: (NOTE) (test code = 91172) HPV HIGH RISK WITH GENOTYPE, [id number] 00:00:00 Test Item Value Reference Range Interpretation Comments HPV HIGH RISK INTERP (test code = POSITIVE 15879) HPV 16 (test code = 18770) NEGATIVE HPV 18 (test code = 10191) NEGATIVE HPV, HR, OTHER GENOTYPES (test code POSITIVE = 85022) HEPATITIS PROFILE (A,B,C)2019-08-14 00:00:00 Test Item Value Reference Range Interpretation Comments HEPATITIS A TOTAL AB (test code REACTIVE = 2725) HEPATITIS B SURF AG (test code = NON-REACTIVE 2739) HEP B CORE TOTAL AB (test code = NON-REACTIVE 2729) HEPATITIS B SURFACE AB (test NON-REACTIVE code = 2737) HEPATITIS C ANTIBODY (test code NON-REACTIVE = 4675) INTERPRETATION HEPATITIS A: (NOTE) (test code = 2552) INTERPRETATION HEPATITIS B: (NOTE) (test code = 38102) INTERPRETATION HEPATITIS C: (NOTE) (test code = 70219) HPV HIGH RISK WITH GENOTYPE, [id number] 00:00:00 Test Item Value Reference Range Interpretation Comments HPV HIGH RISK INTERP (test code = POSITIVE 27219) HPV 16 (test code = 96752) NEGATIVE HPV 18 (test code = 75659) NEGATIVE HPV, HR, OTHER GENOTYPES (test code POSITIVE = 92765) HEPATITIS A IgM [REFLEX]2019-08-14 00:00:00 Test Item Value Reference Range Interpretation Comments HEPATITIS A IgM (test code = NON-REACTIVE 2728) SCR MAMM BILATERAL AKOSUA CAD [id number] 10:34:59 - SCR MAMM BILATERAL AKOSUA CAD DIGITALBILATERAL DIGITAL SCREENING MAMMOGRAM 3D/2D WITH CAD: 03/01/2019 CLINICAL: Asymptomatic. Digital breast tomosynthesis was performed in addition to routine CC and MLOviews. Current mammographic images were evaluated by either a [employer] M-Vu or a TagMii ImageChecker CAD (computer aided detection system). Comparison is made to exams dated 05/16/2017 mammogram and 05/18/2015 mammogram - [facility] [place]. Stop Prgm. There are scattered fibroglandular tissues in both breasts. Nosuspicious mass, architectural distortion, malignant type calcification, or lymph node abnormality detected. Breast architecture is stable compared to prior exams.IMPRESSION: NEGATIVEThere is no mammographic evidence of malignancy. Resume annual screening mammography in one year. Michelle esparza/jackie:03/04/2019 10:34:59 copy to: Ms. Albright Mandujano, [facility] [address], ATTN: Beckie, ph: [phone], fax: [phone] Technologist: Salome Viramontes MM, [facility] Mammographyletter sent: BIRADS 1- 2 Normal Mammogram BI-RADS: 1 Negative
--- NOTE | 2023-05-17 21:48 | RAD REPORT ---
EXAM DESCRIPTION: RAD - Knee Right 3 View - 05/17/2023 9:38 pm CLINICAL HISTORY: PAIN COMPARISON: No comparisons FINDINGS: No acute fracture, dislocation or joint effusion is seen.
--- NOTE | 2023-05-17 21:48 | RAD REPORT ---
EXAM DESCRIPTION: RAD - Ribs Right - 05/17/2023 9:39 pm CLINICAL HISTORY: RIB PAIN - RIGHT COMPARISON: No comparisons FINDINGS: No displaced rib fractures seen. No aggressive rib lesion. No underlying pneumothorax.
--- NOTE | 2023-05-17 21:49 | RAD REPORT ---
EXAM DESCRIPTION: RAD - Hand Right 3 View - 05/17/2023 9:39 pm CLINICAL HISTORY: PAIN COMPARISON: No comparisons FINDINGS: There is an oblique fracture involving the base of the fifth metacarpal with moderate katiana cent soft tissue swelling. No dislocation is seen.
--- NOTE | 2023-05-17 21:56 | EDPHYS ---
Physician Documentation [facility] Name: Shannon Martel Age: 52 yrs Sex: Female : 1970 Arrival Date: 05/17/2023 Time: 20:06 Bed 11 Private MD: ED Physician Jono Diaz HPI: 05/17 22:10 This 52 yrs old Female presents to ER via Ambulatory with complaints of Fall Injury, kb Arm Injury. 22:10 Patient is a 52-year-old female with no medical history presents for right rib, hand kb and knee pain after trip and fall just prior to arrival. Denies hitting head or LOC. Ambulates with steady gait. He has. 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 - Social history:: Smoking status: Patient denies any tobacco usage or history of. Patient/guardian denies using alcohol, street drugs. ROS: 22:08 Constitutional: Negative for fever, chills, and weight loss, kb 22:08 Cardiovascular: Positive for chest pain, with movement, of the right lateral anterior chest, 22:08 MS/extremity: Positive for ecchymosis, pain, swelling, tenderness, of the right hand and right knee, 22:08 All other systems are negative, Exam: 22:08 Constitutional: This is a well developed, well nourished patient who is awake, alert, kb and in no acute distress. Head/Face: Normocephalic, atraumatic. ENT: Moist Mucous membranes Cardiovascular: Regular rate Respiratory: Respirations even and unlabored. No increased work of breathing. Talking in full sentences Skin: Warm, dry with normal turgor. Normal color. Neuro: Awake and alert, GCS 15, oriented to person, place, time, and situation. Moves all extremities. Normal gait. 22:08 Chest/axilla: Inspection: normal, Palpation: tenderness, that is moderate, of the right lateral anterior chest, that totally reproduces the patient's complaints, 22:08 Musculoskeletal/extremity: Extremities: grossly normal except: noted in the right hand: contusion, decreased ROM, ecchymosis, pain, swelling, tenderness, noted in the right knee: pain, tenderness, ROM: intact in all extremities, Circulation is intact in all extremities. Sensation intact. Weight bearing: able to fully bear weight, Vital Signs: 20:15 BP 106 / 86; Pulse 82; Resp 17 S; Temp 97.8(O); Pulse Ox 99% on R/A; Weight 76.2 kg lg3 (R); Height 5 ft. 4 in. (R); 21:55 BP 108 / 63; Pulse 73; Resp 17; Pulse Ox 98% ; vc1 20:15 Body Mass Index 28.84 (76.20 kg, 162.56 cm) lg3 MDM: 20:15 Patient medically screened. radha 22:09 Differential diagnosis: abrasion, contusion, fracture, laceration, sprain, strain. Data kb reviewed: vital signs, nurses notes. Historians other than the Patient: Daughter/Son: Daughter. Counseling: I had a detailed discussion with the patient and/or guardian regarding the historical points, exam findings, and any diagnostic results supporting the discharge/admit diagnosis, radiology results, the need for outpatient follow up, a orthopedic surgeon, to return to the emergency department if symptoms worsen or persist or if there are any questions or concerns that arise at home. 05/17 20:20 Order name: Knee Right 3 View XRAY; Complete Time: 21:49 kb 05/17 20:20 Order name: Ribs Right XRAY; Complete Time: 21:49 kb 05/17 20:20 Order name: Hand Right 3 View XRAY; Complete Time: 21:55 kb 05/17 21:55 Order name: Ulnar Gutter splint; Complete Time: 23:33 kb Administered Medications: 21:00 Not Given (pt took 500mg at home): [id number] mg PO once vc1 Disposition Summary: 05/17/23 21:56 Discharge Ordered Notes: Location: Home kb Condition: Stable kb Diagnosis - Displaced fracture of base of fifth metacarpal bone, right hand kb - Contusion of right knee kb - Contusion of right front wall of thorax kb Followup: kb - With: Emergency Department - When: As needed - Reason: Worsening of condition Followup: kb - With: Private Physician - When: 2 - 3 days - Reason: Recheck today's complaints, Continuance of care, Re-evaluation by your physician Discharge Instructions: - Discharge Summary Sheet kb - Contusion, [id number] kb - Metacarpal Fracture, [id number] kb Forms: - Medication Reconciliation Form kb - Thank You Letter kb - Antibiotic Education kb - Prescription Opioid Use kb - Patient Portal Instructions kb - Leadership Thank You Letter kb Prescriptions: - Diclofenac Sodium 75 mg Oral tablet, delayed release (enteric coated) - take 1 tablet ORAL route 2 times per day As needed; 30 tablet; Refills: 0, kb Product Selection Permitted Signatures: Dispatcher [employer] EDMS Caroline Kitchen, [employer] MARKETING WRITER-Jono Rivas MD MD cha Gibson, Lacie, RN RN lg3 Jazmine Díaz RN vc1
--- NOTE | 2023-05-17 21:56 | ER ---
Nurse's Notes [facility] Name: Shannon Martel Age: 52 yrs Sex: Female : 1970 Arrival Date: 05/17/2023 Time: 20:06 Bed 11 Private MD: Diagnosis: Displaced fracture of base of fifth metacarpal bone, right hand;Contusion of right knee;Contusion of right front wall of thorax Presentation: 05/17 20:15 Chief complaint: Patient's son or daughter states: tripped while walking and landed on lg3 right arm. pain to right hand, arm and knee. Coronavirus screen: Client denies travel out of the [place] in the last 14 days. At this time, the client does not indicate any symptoms associated with coronavirus-19. Ebola Screen: No symptoms or risks identified at this time. Initial Sepsis Screen: Does the patient meet any 2 criteria? No. Patient's initial sepsis screen is negative. Does the patient have a suspected source of infection? No. Patient's initial sepsis screen is negative. Risk Assessment: Do you want to hurt yourself or someone else? Patient reports no desire to harm self or others. Onset of symptoms was May 17, 2023. 20:15 Method Of Arrival: Ambulatory lg3 20:15 Acuity: [place] 4 lg3 Triage Assessment: 20:17 General: Appears in no apparent distress. uncomfortable, Behavior is calm, cooperative. lg3 Pain: Complains of pain in right hand, right arm and right knee. EENT: No deficits noted. No signs and/or symptoms were reported regarding the EENT system. Neuro: No deficits noted. Bello Agitation-Sedation Scale (RASS): 0 - Alert and Calm Level of Consciousness is awake, alert, obeys commands, Oriented to person, place, time, situation. Cardiovascular: No deficits noted. Denies chest pain, shortness of breath, Capillary refill < 3 seconds Clubbing of nail beds is absent JVD is absent Patient's skin is warm and dry. Respiratory: No deficits noted. Airway is patent Respiratory effort is even, unlabored, Respiratory pattern is regular, symmetrical. GI: No deficits noted. No signs and/or symptoms were reported involving the gastrointestinal system. : No deficits noted. No signs and/or symptoms were reported regarding the genitourinary system. Derm: Skin is intact, is healthy with good turgor, Skin is dry, Skin is normal, Skin temperature is warm. Derm:. Musculoskeletal: Circulation, motion, and sensation intact. Range of motion: limited in right wrist. Musculoskeletal: Swelling present in right hand. 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 - Social history:: Smoking status: Patient denies any tobacco usage or history of. Patient/guardian denies using alcohol, street drugs. Screenin:55 [facility] ED Fall Risk Assessment (Adult) History of falling in the last 3 months, vc1 including since admission No falls in past 3 months (0 pts) Confusion or Disorientation No (0 pts) Intoxicated or Sedated No (0 pts) Impaired Gait No (0 pts) Mobility Assist Device Used No (0 pt) Altered Elimination No (0 pt) Score/Fall Risk Level 0 - 2 = Low Risk Oriented to surroundings, Maintained a safe environment, Educated pt \T\ family on fall prevention, incl call for assistance when getting out of bed. Abuse screen: Denies threats or abuse. Nutritional screening: No deficits noted. Tuberculosis screening: No symptoms or risk factors identified. Assessment: 21:00 General: offered icepack ; patient refused. vc1 21:55 Reassessment: No changes from previously documented assessment. Patient and/or family vc1 updated on plan of care and expected duration. Pain level reassessed. Patient is alert, oriented x 3, equal unlabored respirations, skin warm/dry/pink. 23:45 Reassessment: Reassessment: waiting on printed scans from xray. vc1 Vital Signs: 20:15 BP 106 / 86; Pulse 82; Resp 17 S; Temp 97.8(O); Pulse Ox 99% on R/A; Weight 76.2 kg lg3 (R); Height 5 ft. 4 in. (R); 21:55 BP 108 / 63; Pulse 73; Resp 17; Pulse Ox 98% ; vc1 20:15 Body Mass Index 28.84 (76.20 kg, 162.56 cm) lg3 ED Course: 20:11 Patient arrived in ED. [email or web address] 20:15 Jono Diaz MD is Attending Physician. radha 20:17 [facility] Kitchen [facility]C [facility] kb 20:17 Triage completed. lg3 20:17 Arm band placed on left wrist. lg3 20:59 Jazmine Díaz, RN is Primary Nurse. vc1 21:38 Knee Right 3 View XRAY In Process Unspecified. EDMS 21:38 Ribs Right XRAY In Process Unspecified. EDMS 21:38 Hand Right 3 View XRAY In Process Unspecified. EDMS 21:56 Patient has correct armband on for positive identification. Bed in low position. Pulse vc1 ox on. NIBP on. 05/18 01:02 No provider procedures requiring assistance completed. Patient did not have IV access vc1 during this emergency room visit. Administered Medications: 05/17 21:00 Not Given (pt took 500mg at home): mg PO once vc1 Medication: 21:56 VIS not applicable for this client. vc1 Outcome: 21:56 Discharge ordered by . kb 05/18 01:02 Discharged to home ambulatory, vc1 Condition: good Discharge instructions given to patient, Instructed on discharge instructions, follow up and referral plans. medication usage, Demonstrated understanding of instructions, follow-up care, medications, Prescriptions given X 1, 01:02 Patient left the ED. vc1 Signatures: Dispatcher [employer] EDOR Caroline Kitchen FNP-C NURSE CLINICIAN-Ckb Jono Diaz MD MD cha Gibson, Lacie, RN RN 3 Carmen Ha [email or web address] Jazmine Díaz, KING RN vc1 Corrections: (The following items were deleted from the chart) 01:02 01:00 Reassessment: vc1 vc1
[2023-05-18 01:24] VITALS: TEMP 97.8
[2023-05-18 01:25] VITALS: BP 108/63; O2SAT 98
== END 2023-05-18 01:02 | disposition home or self-care (01) ==
LOC: ER 20:06
DX: S62.316A Displaced fracture of base of fifth metacarpal bone, right hand, initial encounter for closed fracture (principal); S80.01XA Contusion of right knee, initial encounter; S20.211A Contusion of right front wall of thorax, initial encounter
CPT/HCPCS: 99283